=== PATIENT | female | born 1940 | race Caucasian/White ===

== ENCOUNTER 2022-11-03 08:00 | Inpatient (IN) | payer OTHER ==
[~2022-11-03] VITALS: Ht 139.7 cm; Wt 45.4 kg
[2022-11-03] MEDS ORDERED: MEDROL4 MG PO (13:31)
[2022-11-03] MEDS ORDERED: HUMIRA40 MG/0.2 SQ (13:31)
[2022-11-03] MEDS ORDERED: FOLIC ACID PO (13:32)
[2022-11-03] MEDS ORDERED: CELEBREX200MG PO ×2 (13:32→13:33)
[2022-11-03] MEDS ORDERED: SYNTHROID300 MCG PO (13:32)
[2022-11-03] MEDS ORDERED: DITROPAN XL10 MG PO (13:34)
== END 2022-11-11 13:28 | disposition home or self-care (01) | DRG 470 ==
LOC: OB/GYN 11-09 06:32 → O/R 11-09 06:32 → SURH 11-09 08:00 → OB/GYN 11-09 14:33
PROVIDERS: ADMIT Orthopaedic Surgery; ATTEND Orthopaedic Surgery
PROC: 0SRD0JZ Replacement of Left Knee Joint with Synthetic Substitute, Open Approach (ICD-10-PCS; principal; 2022-11-09 13:30)
DX: M17.12 Unilateral primary osteoarthritis, left knee (principal); M85.662 Other cyst of bone, left lower leg; E11.9 Type 2 diabetes mellitus without complications; E03.9 Hypothyroidism, unspecified; Z96.652 Presence of left artificial knee joint

== ENCOUNTER 2023-03-04 11:31 | Emergency (ER) | payer OTHER ==
[~2023-03-04] VITALS: Ht 149.9 cm; Wt 45.4 kg
[~2023-03-04 11:31] MED LIST: CELEBREX200MG PO; DITROPAN XL10 MG PO; FOLIC ACID PO; HUMIRA40 MG/0.2 SQ; MEDROL4 MG PO; SYNTHROID300 MCG PO
== END 2023-03-04 14:50 | disposition home or self-care (01) ==
LOC: ER
DX: S81.012A Laceration without foreign body, left knee, initial encounter (principal); W18.39XA Other fall on same level, initial encounter; Y93.89 Activity, other specified; Y92.012 Bathroom of single-family (private) house as the place of occurrence of the external cause; Y99.9 Unspecified external cause status; Z88.6 Allergy status to analgesic agent
CPT/HCPCS: 13121; 13122 ×2; 90471; 90714; 96365; 99284; J0696; J1670